=== PATIENT | female | born 2000 | race African-American/Black ===

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

== ENCOUNTER 2024-06-08 21:33 | Emergency (ER) | payer MEDICAID, OTHER ==
[~2024-06-08] VITALS: Ht 162.6 cm; Wt 60.0 kg
[~2024-06-08 21:33] MED LIST: CLON1PAT11 TD; SERT20OR6 PO
[2024-06-08 21:34] VITALS: O2SAT 99
[2024-06-08] MEDS: LEVETIRACETAM 500MG PREMIX 100 ML IV ONE (22:43)
[2024-06-08 23:05] LABS: BASOPHILS % 0.2 % (0.0-2.0); HEMATOCRIT. 41.7 % (36.0-48.0); HEMOGLOBIN. 14.3 g/dL (12.0-16.0); LYMPHOCYTES % 11.2 % (20.0-50.0); MEAN CORPUSCULAR HEMOGLOBIN 31.5 pg (28.0-32.0); MEAN CORPUSCULAR HGB CONC 34.3 g/dL (31.0-37.0); MEAN CORPUSCULAR VOLUME 91.8 fL (81.0-99.0); MEAN PLATELET VOLUME 7.6 fl (7.4-10.4); NEUTROPHILS % 83.6 % (40.0-76.0); PLATELET 232 x1000/uL (130-400); RED BLOOD CELL COUNT 4.54 mill/uL (4.2-5.4); RED CELL DISTRIBUTION WIDTH 13.1 % (11.6-14.6); WHITE BLOOD COUNT 11.1 x1000/uL (4.5-11.0)
[2024-06-08] MEDS: ACETAMINOPHEN 325MG TABLET PO ONE (23:10)
[2024-06-08 23:21] LABS: CHLORIDE 102 mEq/L (98-107); POTASSIUM 4.2 mEq/L (3.5-5.1); SODIUM 138 mEq/L (136-145)
[2024-06-08 23:22] LABS: CARBON DIOXIDE 25 mEq/L (21-32)
[2024-06-08 23:27] LABS: CREATININE 0.7 mg/dL (0.6-1.0); GLUCOSE 106 mg/dL (70-105); HCG SCREEN NEGATIVE
[2024-06-08 23:28] LABS: UREA NITROGEN BLOOD 10 mg/dL (9-23)
[2024-06-08 23:41] LABS: ETHANOL BLOOD < 10 mg/dL (<10)
[2024-06-09] MEDS ORDERED: BACITRACIN ZINC OINT UDPKT TOP NR (01:00)
[2024-06-09 02:45] VITALS: BP 112/50; PULSE 76; RESP 18; TEMP 36.9; O2SAT 99
== END 2024-06-09 01:52 | disposition home or self-care (01) ==
LOC: ER 21:33
DX: G40.909 Epilepsy, unspecified, not intractable, without status epilepticus (principal); F32.A Depression, unspecified; F12.90 Cannabis use, unspecified, uncomplicated
CPT/HCPCS: 80048; 80320; 84703; 85025; 36415; 96365; 96366; 99284; J1953; G0480